=== PATIENT | female | born 1955 | race Caucasian/White ===

== ENCOUNTER 2018-03-08 08:38 | Day surgery (SDC) | payer BC ==
[~2018-03-08] VITALS: Ht 172.7 cm; Wt 105.2 kg
[2018-03-08] MEDS ORDERED: MIDAZOLAM HCL 5 MG/5 ML VIAL IVP ONE (10:35)
[2018-03-08] MEDS ORDERED: PROPOFOL 200MG/ 20ML VIAL (DIPRIVAN) IV ONE (10:35)
[2018-03-08] MEDS ORDERED: fentaNYL CITRATE/PF 100 MCG/2 ML AMP IVP ONE (10:35)
[2018-03-08] MEDS ORDERED: NS IRRIG SOLN 1000 ML IR ONE (10:35)
[2018-03-08] MEDS ORDERED: NS 1000 ML BAG IV ONE (10:35)
[2018-03-08] MEDS ORDERED: LR 1,000 ML IV.SOLN IV ONE (10:35)
[2018-03-08] MEDS ORDERED: ONDANSETRON HCL 4 MG/2 ML VIAL IVP ONE (10:35)
[2018-03-08] MEDS ORDERED: MIVACURIUM CHLORIDE 20 MG/10 ML VIAL (MIVACRON) INJ ONE (10:35)
[2018-03-08] MEDS ORDERED: LR 1,000 ML IV SCH (10:39)
[2018-03-08] MEDS ORDERED: METOCLOPRAMIDE HCL 10 MG/2 ML VIAL IVP PRN (10:45)
[2018-03-08] MEDS ORDERED: MORPHINE 4 MG/ML INJ. SYRINGE IVP PRN ×3 (10:45)
[2018-03-08] MEDS ORDERED: OXYCODONE/ACETAMINOPHEN 5-325 TABLET PO PRN ×4 (11:30→12:45)
[2018-03-08] MEDS ORDERED: IBUPROFEN 800 MG TABLET PO PRN ×2 (11:30→12:45)
[2018-03-08] MEDS ORDERED: OXYCODONE/ACETAMINOPHEN 5-325 TABLET ONE (12:28)
[2018-03-08 12:36] VITALS: BP_SYST 143
[2018-03-08] MEDS ORDERED: ONDANSETRON HCL 4 MG/2 ML VIAL IVP PRN (12:45)
== END 2018-03-08 13:45 | disposition home or self-care (01) ==
LOC: SDS 08:38 → SMU 08:38 → SDS 13:45
PROVIDERS: ATTEND Obstetrics & Gynecology
DX: N84.0 Polyp of corpus uteri (principal); E78.5 Hyperlipidemia, unspecified; M54.5 Low back pain; E03.9 Hypothyroidism, unspecified; H52.03 Hypermetropia, bilateral; H52.4 Presbyopia; Z68.35 Body mass index [BMI] 35.0-35.9, adult; Z83.49 Family history of other endocrine, nutritional and metabolic diseases; Z80.3 Family history of malignant neoplasm of breast; Z79.899 Other long term (current) drug therapy
CPT/HCPCS: 58558; 88305; J2250; J2405; J2704; J3010; J7030; J7120